=== PATIENT | female | born 1990 | race Caucasian/White ===

== ENCOUNTER 2016-08-21 22:28 | Inpatient (IN) | payer OTHER ==
[~2016-08-21] VITALS: Ht 154.9 cm; Wt 76.0 kg
[2016-08-21 22:33] VITALS: BP 128/80
[2016-08-21 22:41] VITALS: BP 128/80
[2016-08-21] MEDS ORDERED: LR 1,000 ML IV SCH (23:32)
[2016-08-21] MEDS ORDERED: PENICILLIN G POTASSIUM IV 5 MU in D5W MINI-BAG PLUS 100 ML IV STA (23:32)
--- NOTE | 2016-08-21 23:43 | HPEPDOC ---
Obstetrical History & Physical General Date of Admission Aug 21, 2016 at 23:28 History of Present Illness 26 y/o at 40+0 by 1st tri US with LOF since 2129. No VB. Irreg ctx's. Not in a lot of pain. Pos FM. Uncomplicated . Transfered here at 32 weeks. Chief Complaint: Contractions, term, LOF, term Information Provided By: Patient Care Care: Good Care Dating Final EDC: Aug 21, 2016 Final EDC by: 1st trimester (US) Past Medical History Past Obstetrical History : Past Obstetrical History: Primgravida Past Medical History Medical History denies Surgical History: Denies/None Family History Significant Family History: No pertinent family hx Social History Marital Status: Family situation: Spouse/partner home Psychosocial History: No pertinent psych hx * Smoker: non-smoker Alcohol: denies Drugs: denies Abuse Violence Screening Have you been hit/kicked/slapp: No Have you been sexually assault: No Imunizations Tdap status: current Influenza Status: declined Allergies Coded Allergies: No Known Allergies (Unverified , 08/21/16) Physical Examination Physical Examination GENERAL: Alert and oriented times three. BREAST: . ABDOMEN: Gravid and non-tender to touch. FETUS: Is vertex (VTX) by sterile vaginal examination (SVE), signif amt clear fluid with cx check. Nitr pos. EXTREMITIES: No edema. Laboratory Data Urine Culture: No Growth Pertinent Laboratoy Data Blood Type: A+ RBC Antibody Screen: Negative HIV: Negative Hepatitis B: Negative Hepatitis C: Unknown Rapid Plasma Reagin: Nonreactive Rubella: Immune Varicella: Immune Chlamydia/Gonorrhea: Negative Group B Streptococcus: Positive Quad Screen Test: Declined Cystic Fibrosis: Declined Glucose Tolerance Test: 97 Anatomy Ultrasound Placenta Location: Anterior Normal Anatomy: Yes Placenta Previa: No (marginal previa at 17 wk scan, resolved at 30 wk scan) Steroid Therapy Steroid Therapy: No Vaginal Examination Dilation: 2cm Effacement: 75% Station: -2 Cervical Consistency: Soft Cervical Position: Middle Presentation: Cephalic presentation Assessment Variability: Moderate Accelerations: Positive Decelerations: None Tocometer Contractions: Yes Frequency: irregular Assessment/Plan Assessment PROM (clr) at 2129 today at 40+0. Plan Admit and orient. Entry Level Drafter and consent. Diet: clears Group B Streptococcus (GBS) pos, PCN 5/2.5 Labs and intravenous (IV) per unit protocol. Counseled on Pitocin and need for this if after second dose of PCN does not have significant change in her dilation/labor progression. Lactated Ringers (LR): Bolus if epidural desired, currently undecided, for now at 125/hr. Anticipate normal spontaneous delivery () C-S as appropriate. Check at ~0400 after second PCN dose Sessions MD SESSIONS,AFSHIN Weston MD Aug 21, 2016 23:43
[2016-08-22] VITALS (56 sets, daily range): BP systolic 99–159; BP diastolic 56–98
[2016-08-22 00:08] LABS: MEAN CORPUSCULAR HEMOGLOBIN 28.9 pg (27.0-33.0); RED CELL DISTRIBUTION WIDTH 14.8 % (11.5-14.5); WHITE BLOOD COUNT 8.7 K/mm3 (4.0-10.0)
[2016-08-22] MEDS ORDERED: NALBUPHINE HCL 10 MG/ML AMP (J2300) IV ONE (00:30)
[2016-08-22] MEDS ORDERED: NALBUPHINE HCL 10 MG/ML AMP (J2300) IM ONE (00:30)
[2016-08-22] MEDS ORDERED: PROMETHAZINE INJ 25 MG/ML VIAL (J2550) IV ONE (00:30)
[2016-08-22] MEDS: PENICILLIN G POTASSIUM IV 2.5 MU in D5W 100 ML IV SCH ×3 (03:50→14:14)
[2016-08-22] MEDS ORDERED: FENTANYL 2MCG/ML ROPIVACAINE 0.2% NACL 250 ML CADD As Ordered ONE (04:21)
[2016-08-22] MEDS ORDERED: ONDANSETRON 4MG/2ML VIAL (J2405) IV PRN (05:15)
[2016-08-22] MEDS ORDERED: diphenhydrAMINE INJ 50MG/ML VIAL (J1200) IV PRN (05:15)
[2016-08-22] MEDS ORDERED: ePHEDrine SULFATE 25 MG/5 ML(5MG/ML) SYRINGE IV PRN (05:15)
[2016-08-22] MEDS ORDERED: LACTATED RINGER'S 1000 ML IV PRN (05:15)
[2016-08-22] MEDS ORDERED: FENTANYL/ROPIVACAINE/NACL CADD 250 ML EPIDURAL SCH (05:15)
[2016-08-22] MEDS ORDERED: REFRIGERATOR IV KEYS XX PRN (05:15)
[2016-08-22] MEDS ORDERED: EPIDURAL/PCA KEYS XX PRN (05:15)
[2016-08-22] MEDS ORDERED: NALOXONE INJ 0.4 MG/1 ML VIAL (J2310) IV PRN (05:15)
[2016-08-22] MEDS ORDERED: EPIDURAL COMMENT XX SCH (05:15)
--- NOTE | 2016-08-22 06:19 | IPNPDOC ---
Text Note Date of Service The patient was seen on 08/22/16. NOTE late note Now s/p epidural and 2 doses PCN Per RN [id number] Cx 6-7/100/-2 Plan on cx check at [id number] after I finish a on another pt Sessions VS,Katie, I+O VSKatie, I+O Laboratory Tests 08/21/16 23:54 Red Blood Count 3.81 L, Mean Corpuscular Volume 85.0, Mean Corpuscular Hemoglobin 28.9, Mean Corpuscular Hemoglobin Concent 34.0, Red Cell Distribution Width 14.8 H SESSIONS,AFSHIN Weston MD Aug 22, 2016 06:19
[2016-08-22] MEDS ORDERED: OXYTOCIN 30 UNITS IN 0.9% NaCl 500ML IV BAG (J2590) As Ordered ONE (10:21)
[2016-08-22] MEDS ORDERED: OXYTOCIN DRIP 30 UNITS in APPROPRIATE DILUENT 1 EA IV SCH (15:48)
[2016-08-22 15:51] LABS: CORD GAS ABE V -6.5; CORD GAS HCO3 V 17.6 MEQ/L; CORD GAS O2 SAT V 83.5 %; CORD GAS PCO2 V 32.3 mmHg; CORD GAS PH V 7.353 UNITS; CORD GAS PO2 V 38.9 mmHg; CORD GAS SBC V 18.9 MEQ/L; CORD GAS TCO2 V 18.5 MEQ/L
[2016-08-22 15:53] LABS: CORD GAS HCO3 A 19.3 MEQ/L; CORD GAS O2 SAT A 73.1 %; CORD GAS PCO2 A 37.9 mmHg; CORD GAS PH A 7.324 UNITS; CORD GAS PO2 A 33.3 mmHg; CORD GAS TCO2 A 20.4 MEQ/L
[2016-08-22] MEDS ORDERED: DOCUSATE SODIUM 100 MG CAP PO PRN (16:00)
[2016-08-22] MEDS ORDERED: RHOGAM 300 MCG (1500 IU) INJ (J2790) IM SCH (16:00)
[2016-08-22] MEDS ORDERED: MEASLES,MUMPS,RUBELLA VACCINE INJ (MMR-II) (90707) SC SCH (16:00)
[2016-08-22] MEDS ORDERED: ACETAMINOPHEN 500 MG TAB PO PRN (16:00)
[2016-08-22] MEDS ORDERED: METHYLERGONOVINE MALEATE 0.2 MG TAB PO PRN (16:00)
[2016-08-22] MEDS ORDERED: OXYTOCIN INJ 10 UNITS/ML VIAL (J2590) IV ONE (16:00)
[2016-08-22] MEDS ORDERED: ANUSOL HC CREAM 30GM TOP PRN (16:00)
[2016-08-22] MEDS ORDERED: DIBUCAINE 1% OINTMENT 30GM TOP PRN (16:00)
[2016-08-22] MEDS ORDERED: MOM 30ML SUSPENSION UDC PO PRN (16:00)
[2016-08-22] MEDS ORDERED: IBUPROFEN 800 MG TAB PO PRN (16:00)
[2016-08-23 05:58] VITALS: BP 117/70
[2016-08-23 07:26] LABS: MEAN CORPUSCULAR HEMOGLOBIN 28.5 pg (27.0-33.0); MEAN CORPUSCULAR HGB CONC 33.2 g/dl (32.0-36.5); WHITE BLOOD COUNT 12.6 K/mm3 (4.0-10.0)
[2016-08-23] MEDS: PRENATAL VITAMIN TAB PO SCH (09:30)
[2016-08-23 18:18] VITALS: BP 126/76
[2016-08-24 05:31] VITALS: BP 132/78
[2016-08-24] MEDS: PRENATAL VITAMIN TAB PO SCH (10:10)
[2016-08-24] MEDS ORDERED: ACET50TA PO (12:30)
[2016-08-24] MEDS ORDERED: PRENTAB9 PO (12:30)
[2016-08-24] MEDS ORDERED: IBUP-1114 PO (12:31)
[2016-08-24] MEDS ORDERED: COLA100C PO (12:33)
--- NOTE | 2016-08-24 12:34 | DN ---
DATE: 08/22/2016 DELIVERY NOTE: This is a 26-year-old 1, now para 1, was admitted with spontaneous rupture of membrane, group B Streptococcus (GBS) positive and adequately treated. She was in persistent occiput posterior (POP) position to occiput transverse (OT) position for a prolonged period of time, required a bit of augmentation with Pitocin. Baby rotated from the occiput posterior (OP) to the occiput anterior (OA) and patient's perineum was quite swollen due to position of the baby. At full dilatation, she had a spontaneous vaginal delivery of a live female infant with cord around neck times two, tight, 3174 grams, scores of 7 and 9 at 1 at 5 minutes, respectively, 7 pounds 0 ounces. Placenta delivered spontaneously thereafter. Three-vessel cord, membranes and tissues intact. Arterial and venous pH were performed. Examination of the vulva and vagina, quite swollen vulvar area. There was one blood vessel that was bleeding and oversewn with a figure-of-8, 2-0 Vicryl and J339. The rest of the examination was unremarkable. The patient has a significant number of hemorrhoids. Uterus contracted well down on Pitocin. The patient and baby tolerating procedure well.
--- NOTE | 2016-08-24 13:09 | IPN ---
DATE: 08/23/2016 A 26-year-old 1 admitted with spontaneous rupture of murmurs and 40 weeks spontaneous vaginal delivery of female, 7 pounds 0 ounces, 3174 grams. She had significant vulvar swelling. Epidural was in place. No episiotomy. On examination today, her blood pressure 117/70, respirations are 16, pulse 82, temperature 97.6. Her hemoglobin is 11.0, hematocrit 32.4, platelets are 240. hemoglobin day 1 is pending. The rest of the examination is unremarkable. She is neurologic complete. Normocephalic, atraumatic. Neck: Full range of motion. Pupils equal and reactive to light. Distal pulses are symmetric. No evidence of deep vein thrombosis (DVT) , pulmonary embolism (PE), or superficial phlebitis. No wheezes or rhonchi. Bases are clear. Uterus 2 below. Lochia is moderate. Four-quadrant bowel sounds are noted. No rashes, lesions, or pruritus. No arthritis or myalgia. No complaints of cough, wheezes, shortness of breath, or dyspnea on exertion. On examination of her vulvar area the swelling has considerably gone down. She has no chest pain. No bleeding. Neurologic complete. No complaints of incontinence, urgency, or frequency. No nausea, vomiting, diarrhea, or constipation. In summary we have a term gestation delivered from the POP to the OA position. Had significant vulvar edema, which is reduced now. The patient is planning on discharge tomorrow and will use Nor-Q as a method of control.
== END 2016-08-24 13:15 | disposition home or self-care (01) | DRG 775 ==
LOC: M LDO 22:28 → M LDI 23:28 → M OBS 08-22 18:45
PROVIDERS: ADMIT Obstetrics & Gynecology; ATTEND Obstetrics & Gynecology
PROC: 10E0XZZ Delivery of Products of Conception, External Approach (ICD-10-PCS; principal; 2016-08-22)
PROC: 0HQ9XZZ Repair Perineum Skin, External Approach (ICD-10-PCS; 2016-08-22)
DX: O99.824 Streptococcus B carrier state complicating childbirth (principal); Z3A.40 40 weeks gestation of pregnancy; O69.81X0 Labor and delivery complicated by cord around neck, without compression, not applicable or unspecified; O22.43 Hemorrhoids in pregnancy, third trimester; O70.0 First degree perineal laceration during delivery; Z37.0 Single live birth

== ENCOUNTER 2019-03-13 22:56 | Outpatient (CLI) | payer OTHER ==
[~2019-03-13] VITALS: Ht 154.9 cm; Wt 77.9 kg
[~2019-03-13 22:56] MED LIST: COLA100C5 PO; IBUP-1114 PO; MAPA500T2 PO; PRENTAB9 PO
[2019-03-13 23:19] VITALS: BP 135/92
[2019-03-13 23:45] VITALS: BP 125/86
--- NOTE | 2019-03-14 00:21 | HPE ---
DATE OF ADMISSION: 03/13/2019 A 28-year-old 2, para 1, last menstrual period (LMP) 05/30/2018, estimated date of confinement (EDC) 03/13/2019 at 40 weeks of gestation, thought she was in labor. No loss of fluid or vaginal bleeding. PAST HISTORY: August 2016: At 40 weeks spontaneous vaginal delivery, epidural, female, 7 pounds. She has uncomplicated antepartum course, had anemia but was given iron and vitamin C, otherwise unremarkable. Labs are A+, HIV negative, hepatitis negative, RPR negative, rubella immune. Varicella immune. Pap normal. Urine negative. Gonorrhea and chlamydia are negative. 1-hour glucose 103. GBS is negative. Blood pressure 125/80, respirations 18, pulse 70, temperature 98.2. Urine 1.010, pH 7, trace of blood. On examination, no acute distress. Symphysis fundus height is 40, vertex presenting. Category one strip. She does have contractions, but they are intermittent and moderate intensity, and they are far apart. She has to actually look at her watch to find out when they are. On pelvic examination, no vaginal loss or bleeding, 1 cm, very posterior, thick, -3 station, bulging membranes. Plan of management is to hydrate. We gave her discharge instructions regarding kick chart, premature rupture of membranes, labor. She is booked for induction of labor on 03/20/2019, to maintain that appointment. Otherwise, if there is ruptured membranes, bleeding, contractions that are moderate intensity, 5-7 minutes apart, lasting 40 to 60 seconds, she is to return or call the triage line. The patient expressed understanding. She was discharged undelivered.
[2019-03-15] MEDS ORDERED: COLA100C5 PO (07:41)
[2019-03-15] MEDS ORDERED: IBUP80TA PO (07:41)
[2019-03-15] MEDS ORDERED: DIBU10OI TOP (07:41)
[2019-03-15] MEDS ORDERED: PROC1CRE5 TOP (07:41)
== END 2019-03-14 | disposition home or self-care (01) ==
LOC: M LDO 22:56
PROVIDERS: ATTEND Obstetrics & Gynecology
DX: O47.1 False labor at or after 37 completed weeks of gestation (principal); Z3A.40 40 weeks gestation of pregnancy
CPT/HCPCS: 59025; G0378; G0463

== ENCOUNTER 2019-03-14 00:43 | Inpatient (IN) | payer OTHER ==
[2019-03-14] VITALS (18 sets, daily range): BP systolic 113–185; BP diastolic 60–104
[~2019-03-14] VITALS: Ht 154.9 cm; Wt 77.3 kg
[2019-03-14 01:39] LABS: HEMATOCRIT 35.6 % (36.0-47.0); HEMOGLOBIN 11.5 g/dl (12.0-15.5); MEAN CORPUSCULAR HEMOGLOBIN 27.5 pg (27.0-33.0); MEAN CORPUSCULAR HGB CONC 32.3 g/dl (32.0-36.5); MEAN CORPUSCULAR VOLUME 85.2 fl (80.0-96.0); PLATELET COUNT, AUTOMATED 236 10^3/uL (150-450); RED BLOOD COUNT 4.18 10^6/uL (4.00-5.40); WHITE BLOOD COUNT 14.4 10^3/uL (4.0-10.0)
[2019-03-14] MEDS ORDERED: FENTANYL 2MCG/ML ROPIVACAINE 0.2% IN 0.9% NACL 100ML IVBAG As Ordered ONE (01:57)
[2019-03-14] MEDS ORDERED: diphenhydrAMINE INJ 50MG/ML VIAL (J1200) IV PRN (03:00)
[2019-03-14] MEDS ORDERED: EPIDURAL/PCA KEYS XX PRN (03:00)
[2019-03-14] MEDS ORDERED: FENTANYL/ROPIVACAINE/NACL BAG 100 ML EPIDURAL SCH (03:00)
[2019-03-14] MEDS ORDERED: ONDANSETRON 4MG/2ML VIAL (J2405) IV PRN (03:00)
[2019-03-14] MEDS ORDERED: EPIDURAL COMMENT XX SCH (03:00)
[2019-03-14] MEDS ORDERED: NALOXONE INJ 0.4 MG/1 ML VIAL (J2310) IV PRN (03:00)
[2019-03-14] MEDS ORDERED: LACTATED RINGER'S 1000 ML IV PRN (03:00)
[2019-03-14] MEDS ORDERED: ePHEDrine SULFATE 25 MG/5 ML(5MG/ML) SYRINGE IV PRN (03:00)
[2019-03-14] MEDS ORDERED: REFRIGERATOR IV KEYS XX PRN (03:00)
[2019-03-14] MEDS ORDERED: OXYTOCIN 30 UNITS IN 0.9% NaCl 500ML IV BAG (J2590) As Ordered ONE (03:32)
[2019-03-14 04:06] LABS: CORD GAS ABE A -9.6; CORD GAS ABE V -8.4; CORD GAS HCO3 A 22.5 MEQ/L; CORD GAS HCO3 V 19.7 MEQ/L; CORD GAS O2 SAT A 41.9 %; CORD GAS O2 SAT V 44.6 %; CORD GAS PCO2 A 75.4 mmHg; CORD GAS PCO2 V 49.7 mmHg; CORD GAS PH A 7.092 UNITS; CORD GAS PH V 7.217 UNITS; CORD GAS PO2 A 23.9 mmHg; CORD GAS PO2 V 22.4 mmHg; CORD GAS SBC A 15.7 MEQ/L; CORD GAS SBC V 16.5 MEQ/L; CORD GAS TCO2 A 24.8 MEQ/L; CORD GAS TCO2 V 21.3 MEQ/L
[2019-03-14] MEDS ORDERED: LR 1,000 ML IV SCH (04:58)
[2019-03-14] MEDS ORDERED: ANUSOL HC CREAM 30GM TOP PRN (05:00)
[2019-03-14] MEDS ORDERED: MEASLES,MUMPS,RUBELLA VACCINE INJ (MMR-II) (90707) SC SCH (05:00)
[2019-03-14] MEDS ORDERED: DOCUSATE SODIUM 100 MG CAP PO PRN (05:00)
[2019-03-14] MEDS ORDERED: ACETAMINOPHEN TAB 650MG DOSE (2X325MG) PO PRN (05:00)
[2019-03-14] MEDS ORDERED: RHOGAM 300 MCG (1500 IU) INJ (J2790) IM SCH (05:00)
[2019-03-14] MEDS ORDERED: OXYTOCIN INJ 10 UNITS/ML VIAL (J2590) IV ONE (05:00)
[2019-03-14] MEDS ORDERED: MOM 30ML SUSPENSION UDC PO PRN (05:00)
[2019-03-14] MEDS ORDERED: OXYTOCIN DRIP 30 UNITS in APPROPRIATE DILUENT 1 EA IV ONE (05:00)
[2019-03-14] MEDS ORDERED: METHYLERGONOVINE MALEATE 0.2 MG TAB PO PRN (05:00)
[2019-03-14] MEDS ORDERED: DIBUCAINE 1% OINTMENT 30GM TOP PRN (05:00)
[2019-03-14] MEDS ORDERED: IBUPROFEN 600 MG TAB PO PRN (05:00)
--- NOTE | 2019-03-14 08:04 | HPE ---
DATE OF ADMISSION: 03/14/2019 HISTORY: This is a 28-year-old, 2, para 1, last menstrual period (LMP) is 05/30/2018, expected date of confinement (EDC) by early ultrasound is 03/13/2019 at 40 weeks and 1 day of gestation who came back after being discharged at being only 2 cm in active labor with spontaneous rupture of membranes and found to be 4 cm dilated and with moderate intensity of contractions. PAST HISTORY: In 2017, at 40 weeks, spontaneous vaginal delivery with epidural, female, 7 pounds. She has an uncomplicated course. She had anemia and was given iron and vitamin C, otherwise was well. LAB VALUES: A positive. HIV negative. Hepatitis negative. RPR negative. Rubella immune. Varicella immune. Pap normal. Urine negative. Gonorrhea and chlamydia are negative. 1-hour glucose was 103. GBS is negative. Blood pressure on admission was 128/77, respirations are 18, pulse 85, temperature 97.1. Hemoglobin 11.5, hematocrit 35.6 and platelets are 236. She is in moderate distress at the present time. Symphysis fundus height is 40, vertex. Category one strip. Clear liquid noted. The plan of management was to hydrate her and get an epidural. We anticipate progress to delivery. We discussed the risks and benefits of vaginal delivery which includes the possibility of use of forceps or vacuum devices if needed for maternal or indications, forceps or vacuum device that could assist when vaginal delivery with normal pushing efforts cannot achieve delivery on their own or when delivery is imminent or if needed in an emergency situation for the well-being. Medications required to augment her labor to help achieve vaginal delivery. Episiotomy may be required to deliver the baby vaginally. May also require repair of any lacerations or tears of the vagina or vulva that are caused by delivery. In some cases, emergencies arise which require delivery so quickly that we need to do emergency section. The provider will discuss the reasons for this as this is needed in order to be safer for mom and baby than continuing labor and is performed for clinically indicated reasons. The risks of vaginal delivery include, but are not limited to bleeding, infection, injury to vagina or pelvic structures, injury to baby, damage to the uterus, reaction to anesthesia, uterine rupture, risk of hysterectomy for life-threatening bleeding, or even . Medications used to augment labor may increase the risk for infection, uterine tachysystole, uterine rupture, rate heart abnormalities, need for emergency delivery, possible hysterectomy for hemorrhage. In addition the risks for use of forceps or vacuum include scratches or hematomas of the head and intracranial bleed. The patient expressed and verbalized understanding. We will hydrate her, get an epidural in place and anticipate progress.
[2019-03-14] MEDS: PRENATAL VITAMINS CHEWABLE TABLET PO SCH (09:42)
[2019-03-14] MEDS ORDERED: OXYTOCIN INJ 10 UNITS/ML VIAL (J2590) As Ordered ONE (10:08)
[2019-03-14] MEDS ORDERED: LIDOCAINE 1% MDV 20ML VIAL As Ordered ONE (10:08)
--- NOTE | 2019-03-14 10:09 | DN ---
DATE: 03/14/2019 DELIVERY NOTE: This is a 2, para 1 was discharged earlier this evening because she was having mild contractions and only 2 cm and was very early prodromal labor. She returned several hours later having had spontaneous rupture of membranes and was found to be 4 cm, clear liquor and actively romario. She did have an epidural in place and I was called regarding decelerations of the heart below baseline and with poor recovery. On digital examination, she was found to be 9-1/2 cm, -2 station in the POP position. Despite adequate pushing, the contractions themselves seemed to be short and nonproductive therefore she was on 2 mA of Pitocin to enhance the contractions. Eventually, at full dilatation with persistent bradycardia, we used forceps in the POP position. After examining the patient being fully dilated, bladder was drained and with one pull to the perineum brought the baby posteriorly and under the symphysis pubis. The forceps were then removed and with the next push she had a spontaneous vaginal delivery of a male infant. We noted the cord was around the neck, very tight, delivered a live 7 pounds 15 ounces, 3590 grams, scores of 3, 6, and 8. The cord was also wrapped around the shoulder. The arterial pH was 7.09, base excess -9.6, venous pH 7.21, base excess -8.4. The placenta delivered spontaneously thereafter. Three-vessels, membranes and tissues intact. The uterus contracted well down on Pitocin. On evaluation of the vagina, we noticed that she had a vaginal tear from delivery and we oversewn that with a 2-0 Vicryl on a J 339. Hemostasis was secured. Digital examination of the rectum was intact with sphincter. Anterior, posterior and lateral miller were also intact. The cervix, the anterior lip, was quite swollen because of the persistent POP; however, it was resolving on its own. There was some bruising of the perineum but no evidence of extravasation of blood. In summary, we have a term gestation delivered a live male by low forceps delivery. The baby was taken the intensive care unit (NICU) as protocol because of forceps delivery for observation for 4 hours.
[2019-03-14] MEDS: ACETAMINOPHEN 500 MG TAB PO PRN ×2 (13:26→21:05)
[2019-03-14] MEDS ORDERED: SLF 3 ML SYR IV PRN (15:45)
[2019-03-14] MEDS: IBUPROFEN 800 MG TAB PO PRN (15:47)
[2019-03-14] MEDS: SLF 3 ML SYR IV SCH (22:00)
[2019-03-15] MEDS: IBUPROFEN 800 MG TAB PO PRN (00:01)
[2019-03-15] MEDS: SLF 3 ML SYR IV SCH (05:07)
[2019-03-15 06:13] VITALS: BP 109/64
[2019-03-15 07:00] LABS: HEMATOCRIT 29.4 % (36.0-47.0); MEAN CORPUSCULAR HEMOGLOBIN 26.7 pg (27.0-33.0); MEAN CORPUSCULAR VOLUME 86.2 fl (80.0-96.0); PLATELET COUNT, AUTOMATED 169 10^3/uL (150-450); RED BLOOD COUNT 3.41 10^6/uL (4.00-5.40); WHITE BLOOD COUNT 9.8 10^3/uL (4.0-10.0)
[2019-03-15 07:04] LABS: HEMOGLOBIN 9.1 g/dl (12.0-15.5)
[2019-03-15] MEDS ORDERED: IBUP80TA PO (07:41)
[2019-03-15] MEDS ORDERED: COLA100C5 PO (07:41)
[2019-03-15] MEDS ORDERED: PROC1CRE5 TOP (07:41)
[2019-03-15] MEDS ORDERED: DIBU10OI TOP (07:41)
--- NOTE | 2019-03-15 09:42 | DSES ---
DATE OF ADMISSION: 03/14/2019 DATE OF DISCHARGE: 03/15/2019 28-year-old, 2, para 1, who is in moderate distress. She came in, in active labor. She had spontaneous rupture of membranes of clear liquor. When she got into active labor, she had an epidural in place, delivered a live male infant male, score of 3, 6, 8 at one, five and ten minutes. Baby was transitioned in the intensive care unit (NICU) because of the use of forceps. Baby had a significant tight cord around the neck, very tight on the body as well. Male weighed 7 pounds 15 ounces (3590 grams). Arterial pH 7.09, base excess -9.6, venous pH 7.21, base excess 8.4. On discharge, we discussed phlebitis, cystitis, mastitis, endometritis and cellulitis, diet, exercise, pain management, perineal, breast and wound care. She was not dispensed contraceptive as her is being deployed, but she has been dispensed with her medications. She has a 6 week checkup. On discharge, her blood pressure is 109/64, respirations 18, pulse 71, temperature is 97.7. Her discharge hemoglobin 9.1, hematocrit 29.4 and platelets were 169. The rest examination unremarkable. Normocephalic, atraumatic. Neck full range of motion. Pupils equal and reactive light. Distal pulses symmetric. No evident deep venous thrombosis (DVT), pulmonary embolism (PE) or superficial phlebiktis. Chest is clear bilaterally bases. No wheezes or rhonchi. Abdomen is soft. Uterus 2 below, lochia is moderate. Four quadrant bowel sounds are noted. Perineum is clean and dry. No rashes, lesions or pruritus. No complaint of cough, wheeze, shortness breath or dyspnea on exertion. No complaint joint pain. No incontinency or frequency. No nausea, vomiting, diarrhea, or constipation. In summary, we have a term gestation delivered a live male , discharged, appointment 6 weeks post [facility], discharged with medications. edited: 03/16/2019 0730 tkf ROSENDA
--- NOTE | 2019-03-15 10:25 | DSES ---
DATE OF ADMISSION: 03/14/2019 DATE OF DISCHARGE: 03/15/2019 28-year-old 2 now para 2 who was admitted with spontaneous rupture of membranes at 40 and 1 weeks' of gestation. She had prolonged bradycardia, operative vaginal delivery of a live male infant, 7 pounds 15 ounces, 3590 grams, scores of 3, 6, and 8 at 1, 5 and 10 minutes. Cord was very tight around the neck and across the shoulder. Arterial pH 7.09, base excess -9.6, venous pH 7.21, base excess -8.4. She had a small vaginal tear, which was oversewn usual fashion hemostatically with 2-0 Vicryl J 339. On discharge, her blood pressure is 109/64, respirations 18, pulse 71, temperature 97.7. Her discharge hemoglobin was 9.1, hematocrit 29.4 and platelets are 169. The rest examination unremarkable. Normocephalic, atraumatic. Neck: Full range of motion. Pupils equal and reactive to light. Distal pulses symmetric. No evidence of DVT, PE or superficial phlebitis. Chest is clear bilaterally to the bases. No wheezes or rhonchi. No CVA tenderness. Abdomen is soft. Uterus 2 below. Lochia is moderate. Four quadrant bowel sounds are noted. Perineum is healing. No rashes, lesions or pruritus. No arthralgia or myalgia. No complaint joint pain. No complaint cough, wheeze, shortness of breath or dyspnea on exertion. No nausea, vomiting, diarrhea or constipation. No urgency or frequency. SUMMARY: We have a term gestation delivered a live male infant. Medications were dispensed at discharge. She has not made up her mind regarding control. She has a 6-week check. All questions were answered. 20-minute discussion. edited: 03/16/2019 0731 sunday HERZOG
[2019-03-15] MEDS: PRENATAL VITAMINS CHEWABLE TABLET PO SCH (10:26)
== END 2019-03-15 13:30 | disposition home or self-care (01) | DRG 807 ==
LOC: M LDO 00:43 → M LDI 01:17 → M OBS 10:08
PROVIDERS: ADMIT Obstetrics & Gynecology; ATTEND Obstetrics & Gynecology
PROC: 10D07Z3 Extraction of Products of Conception, Low Forceps, Via Natural or Artificial Opening (ICD-10-PCS; principal; 2019-03-14)
DX: O48.0 Post-term pregnancy (principal); Z37.0 Single live birth; Z3A.40 40 weeks gestation of pregnancy; O76 Abnormality in fetal heart rate and rhythm complicating labor and delivery

== ENCOUNTER → 2019-05-25 | Outpatient (CLI) | payer OTHER ==
[~2019-05-25] MED LIST changes: +DIBU10OI TOP; +IBUP80TA PO; +PROC1CRE5 TOP
--- NOTE | 2019-06-01 01:21 | ECWPNPC ---
PATIENT NAME: RAMYA CRAVEN : 1990 GENDER: FEMALE VISIT DATE: 05/25/2019 DISCHARGE DATE: 05/25/19 1606 VISIT LOCKED DATE TIME: PHYSICIAN: SHANNAN WARREN MD RESOURCE: SHANNAN WARREN MD REASON FOR APPOINTMENT 1. POST PARTEM PAIN AT EPIDURAL SITE/NUMBNESS HISTORY OF PRESENT ILLNESS PAIN SCREENING: PATIENT HAS A COMPLAINT OF ACUTE OR CHRONIC PAIN :YES 29 YEAR OLD FEMALE PATIENT WITH A HISTORY OF CHRONIC BACK AND HIP PAIN. THE PATIENT DESCRIBES THE PAIN ACHING, TENDER, INTERMITTENT, AND CONTINUOUS WITH A PAIN SCORE OF 4-6/10 DEPENDING ON PHYSICAL ACTIVITY. THE PATIENT SATES HER PAIN BEGAN AFTER SHE HAD A VAGINAL DELIVERY AND AN EPIDURAL. THE PATIENT STATES HER PAIN BEGINS IN HER BACK AND RADIATES DOWN TOWARD HER HIPS WITH NUMBNESS OVER MAINLY HER LEFT HIP. THE PATIENT SAYS HER PAIN AND NUMBNESS FIRST BEGAN IN HER RIGHT THIGH AREA, BUT SWITCHED TO HER LEFT AFTERWARD. THE PATIENT SAYS SHE IS CURRENTLY BREAST FEEDING HER BABY. THE PATIENT MENTIONS SHE HAS A PAST HISTORY OF ANKLE PAIN THAT BEGAN WHEN SHE WAS PLAYING SOCCER, BUT THE ANKLE PAIN RESIDED AFTER SHE QUIT PLAYING THE SPORT. PATIENT DENIES UNEXPLAINABLE WEIGHT LOSS, FEVER, CHILLS, NEW CHANGES ON HER URINARY OR BOWEL CONTROL. FALL RISK SCREENING: SCREENING :NO FALLS REPORTED IN THE LAST YEAR CURRENT MEDICATIONS TAKING 19 - TABLET 1 TABLET ORALLY ONCE A DAY MEDICATION LIST REVIEWED AND RECONCILED WITH THE PATIENT PAST MEDICAL HISTORY MEDICAL HISTORY VERIFIED. ALLERGIES N.K.D.A. SURGICAL HISTORY TONSILLECTOMY 1996 FAMILY HISTORY FATHER: ALIVE 60 YRS MOTHER: ALIVE 50 YRS 2 BROTHER(S) - HEALTHY. 1 SON(S) , 1 DAUGHTER(S) - HEALTHY. DAD HAS DIVERTICULITISMOM WITH HISTORY OF ALCOHOL ABUSE. SOCIAL HISTORY GENERAL: TOBACCO USE ARE YOU A:NONSMOKER PAIN CLINIC PFS, CLERGY, PUBLIC HEALTH REFERRALS HAS THE PATIENT BEEN EDUCATED REGARDING HIS/HER PLAN OF CARE?YES HAS THE PATIENT BEEN EDUCATED REGARDING PAIN, THE RISK FOR PAIN, THE IMPORTANCE OF EFFECTIVE PAIN MANAGEMENT, AND THE PAIN ASSESSMENT PROCESS?YES LATEX QUESTIONNAIRE LATEX ALLERGY : HAVE YOU EVER DEVELOPED ANY TYPE OF REACTION AFTER HANDLING LATEX PRODUCTS SUCH RUBBER GLOVES, CONDOMS, DIAPHRAGMS, BALLOONS, SOCKS, OR UNDERWEAR?NO LATEX ALLERGY : HAVE YOU EVER DEVELOPED ANY TYPE OF REACTION DURING OR AFTER DENTAL APPOINTMENT, VAGINAL/RECTAL EXAMINATION, SURGICAL PROCEDURE, OR ANY OTHER EXPOSURE?NO LATEX RISK : HAVE YOU EVER HAD ANY DIFFICULTY BREATHING OR HIVES AFTER EATING OR HANDLING ANY FRUITS, OR VEGETABLES; SUCH KIWI, BANANAS, STONE FRUITS, OR CHESTNUTSNO LATEX RISK : DO YOU HAVE A PREVIOUS PERSONAL HISTORY OF MORE THAN NINE SURGERIES, SPINA BIFIDA, OR REPEATED CATHERIZATIONS? NO LATEX RISK : ARE YOU FREQUENTLY EXPOSED TO LATEX PRODUCTS IN YOUR OCCUPATION?NO DATE ASKED : 05/25/2019 OTHERS AT HOME: CHILDREN, SPOUSE DEPLOYED. CAFFEINE CAFFEINE USE?YES 2/MONTH ADVANCE DIRECTIVE ADVANCE DIRECTIVE DISCUSSED WITH PATIENT:YES PT HAS NO ADVANCED DIRECTIVES, DECLINES INFORMATION OR ASSISTANCE AT THIS TIME LANGUAGE LANGUAGES SPOKEN:CYPRIOT DOMESTIC VIOLENCE DO YOU FEEL SAFE IN YOUR ENVIRONMENT?YES MARITAL STATUS: . RECREATIONAL DRUG USE DRUG USE?NO OCCUPATION: STAY AT HOME MOM. LEARNING BARRIERS / SPECIAL NEEDS BARRIERS TO LEARNING?NO HEARING IMPAIRED?NO VISION IMPAIRED?NO COGNITIVELY IMPAIRED?NO READINESS TO LEARN?YES LEARNING PREFERENCES?NO LEARNING CAPABILITIES PRESENT?YES EMOTIONAL BARRIERS?NO SPECIAL DEVICES?NO ARCHITECTURAL INSPECTOR NEEDED?NO HOSPITALIZATION/MAJOR DIAGNOSTIC PROCEDURE SURGERY AND CHILDBIRTH REVIEW OF SYSTEMS REVIEWED BY: PROVIDER: SHANNAN WARREN MD . CONSTITUTIONAL: ANY CHANGE IN YOUR MEDICAL CONDITION? NO . CHILLS NO . FEVER NO . INFECTION: DO YOU HAVE NEW INFECTIONS? NO . DO YOU HAVE HISTORY OF MRSA? NO . MUSCULOSKELETAL: ANY NEW PATTERNS OF PAIN OR NUMBNESS? YES PT REPORTS THAT SINCE GIVING TO HER SECOND CHILD 03/2019, SHE HAS HAD PAIN IN HER LOW BACK (EPIDURAL SITE). THIS PAIN ORIGINALLY RADIATED TO RIGHT HIP/BUTT/THIGH WHICH HAS NOW RESOLVED, BUT PAIN IS NOW RADIATING TO LEFT LATERAL HIP/BUTT/THIGH. SHE STATES THIS IS HAPPENING ABOUT 3 TIMES A DAY, EACH TIME LASTING FROM 30 SECONDS TO SEVERAL MINUTES. SHE SAYS SHE DOESN'T LOSE STRENGTH IN HER LEGS, BUT IS ALSO NOT CONFIDENT THAT SHE WON'T. SHE HAS TRIED STRETCHING, MOVING/RESTING. . SYTEMIC LUPUS NO . GASTROENTEROLOGY: ANY NEW CHANGE IN BOWEL CONTROL? YES PT REPORTS TWO EPISODES OF URGENCY/DIARRHEA. . BARRETTS ESOPHAGUS NO . CIRRHOSIS NO . HEPATITIS NO . LIVER FAILURE NO . ACID REFLUX NO . UNEXPLAINED WEIGHT LOSS NO . GENITOURINARY: ANY NEW CHANGE IN BLADDER CONTROL? NO . IS THERE A CHANCE YOU COULD BE ? NO . HEMATOLOGY/LYMPH: DO YOU TAKE ANY BLOOD THINNERS? (FOR EXAMPLE- COUMADIN, PLAVIX, AGGRENOX, PLATEL, PRADAXA, OR XARELTO) NO . WHEN WAS YOUR LAST DOSE? DATE: TIME: . LOW PLATELET COUNT NO . SICKLE CELL DISEASE NO . VON WILLIEBRANDS NO . FACTOR V LEIDEN NO . THALLASEMIA NO . ANEMIA NO . EASY BRUISING NO . NEUROLOGY: HAVE YOU FALLEN IN THE PAST 12 MONTHS? NO . ANY NEW EXTREMITY NUMBNESS OR WEAKNESS? NO . HEAD INJURY NO . DEMENTIA NO . CEREBRAL PALSY NO . MULTIPLE SCLEROSIS NO . DIZZINESS WHILE GETTING UP FROM SITTING POSITION OCCASIONALLY . HEADACHE NO . STROKES NO . VERTIGO NO . CARDIOLOGY: DO YOU HAVE A PACEMAKER OR DEFIBRILLATOR? NO . ANGINA NO . HEART ATTACK NO . HEART SURGERY NO . CONGESTIVE HEART FAILURE/FLUID OVERLOAD NO . CHEST PAIN NO . HIGH BLOOD PRESSURE NO . IRREGULAR HEART BEAT NO . RESPIRATORY: HAVE YOU BEEN SICK IN THE PAST WEEK? NO . FEVER NO . FLU LIKE SYMPTOMS? NO . CPAP NO . BYPAP NO . ASTHMA NO . EMPHYSEMA NO . CHRONIC LUNG DISEASES NO . SHORTNESS OF BREATH ON EXERTION NO . COUGH NO . SNORING NO . INTEGUMENTARY: DO YOU HAVE ANY RASHES OR OPEN SORES? NO . ALLERGIC/IMMUNO: ARE YOU ALLERGIC TO IV DYE? NO . ANY NEW ALLERGIES? NO . PSYCHIATRIC: DO YOU HAVE THOUGHTS OF HURTING YOURSELF OR SOMEONE ELSE? NO . ARE YOU ABUSED, NEGLECTED, OR IN AN UNSAFE ENVIRONMENT? NO . ENDOCRINOLOGY: ARE YOU DIABETIC? NO . THYROID DISORDER NO . OTHER: DO YOU NEED ANY PRESCRIPTIONS? NO . IF YES, PLEASE LIST: ____ . ANY NEW PROBLEMS WITH YOUR MEDICATIONS? NO . WHEN DID YOU LAST EAT? ____ . WHEN DID YOU LAST DRINK? ____ . WHAT DID YOU LAST DRINK? ____ . NAME OF PERSON DRIVING YOU HOME? ____ . DO YOU HAVE ANY OTHER QUESTIONS OR CONCERNS NO . VITAL SIGNS WT 143.4 LBS, HT 51 IN, BMI 38.76 INDEX, BP 115/65 MM HG, HR 67 /MIN, RR 18 /MIN, TEMP 97.8 F, OXYGEN SAT % 97%, SAFE IN ENV? (Y/N) YES, NA INITIALS AW 1421, REVIEWED BY: MARIANNA. EXAMINATION GENERAL EXAMINATION: PATIENT IS ALERT O X 3 AND COOPERATIVE. LUNGS CLEAR, TO AUSCULTATION. HEART: NO MURMURS OR GALLOPS; FACIAL CRANIAL NERVES ARE GROSSLY NORMAL. GOOD SYMMETRY OF FACIAL MUSCLE MOVEMENT. NORMAL VISUAL BADILLO. NORMAL GAIT. TENDERNESS OVER THE PARASPINAL MUSCLE GROUP OF THE LOW BACK. PRESENCE OF BANDS OF TISSUE AND TRIGGER POINTS WITH RESTRICTION OF MOVEMENT OF THE LOW BACK. PAIN INCREASES OVER THE LUMBAR FACET JOINTS WITH EXTENSION AND LATERAL ROTATION OF THE BACK. TENDERNESS OVER THE MEDIAL ASPECT PROXIMAL TO ANKLES AND DISTAL LEGS. STRAIGHT LEG RAISES OF EITHER LEG ARE NEGATIVE FOR RADICULOPATHY. LEG STRENGTH ARE ADEQUATE FOR BOTH LEGS. ASSESSMENTS LUMBAGO WITH SCIATICA, RIGHT SIDE - M54.41 (PRIMARY) OTHER CHRONIC PAIN - G89.29 LUMBAGO WITH SCIATICA, LEFT SIDE - M54.42 NUMBNESS OF LEGS - R20.0 TREATMENT LUMBAGO WITH SCIATICA, RIGHT SIDE [facility] MRI LUMBAR W/O CONTRAST (CPT 12934)[id number] CLINICAL NOTES: WE DISCUSSED SEVERAL ISSUES WITH MS. CRAVEN'S PAIN MANAGEMENT CASE. I AM REQUESTING FOR THE PATIENT TO START PHYSICAL THERAPY, 3 SESSIONS PER WEEK FOR A DURATION OF 6 WEEKS, TO HELP WITH HER BACK AND HIP PAIN. I WOULD ALSO LIKE TO ORDER FOR THE PATIENT TO HAVE A LUMBAR MRI DONE TO GAIN A BETTER UNDERSTANDING OF WHERE THE PATIENT'S PAIN IS ORIGINATING FROM. I WILL REFER THE PATIENT TO A NEUROLOGIST FOR A CONSULT TO DISCUSS POTENTIAL OPTIONS. THE PATIENT WILL FOLLOW UP WITH THE NURSE PRACTITIONER IN SEVERAL WEEKS. INSTRUCTIONS WERE GIVEN, QUESTIONS WERE ANSWERED, PATIENT REPORTS UNDERSTANDING AND AGREES WITH THE PLAN. I, CARL CLARK, DOCUMENTED THE ABOVE INFORMATION ACTING A SCRIBE FOR DR. WARREN. I HAVE REVIEWED THE ABOVE DOCUMENT, WRITTEN BY CARL LIRA AND I VERIFY THAT IT IS ACCURATE. [facility]: THANK YOU FOR YOUR KIND REFERRAL OF RAMYA CRAVEN. IF YOU WANT TO DISCUSS HER CASE WITH ME PLEASE CALL ME AT THE PAIN CENTER AT [phone]. SINCERELY, SHANNAN WARREN MD PAIN MEDICINE . OTHER CHRONIC PAIN [facility] MRI LUMBAR W/O CONTRAST (CPT [id number])[id number] LUMBAGO WITH SCIATICA, LEFT SIDE [facility] MRI LUMBAR W/O CONTRAST (CPT [id number])[id number] NUMBNESS OF LEGS [facility] MRI LUMBAR W/O CONTRAST (CPT [id number] PROCEDURE CODES FA211 ESTABILISHED PATIENT [facility] FACILITY CHARGE [id number] CURRENT MEDS W/DOSAGES DOCUMENTED G8730 PAIN ASSESS POS TOOL F/U PLAN DOC DISPOSITION & COMMUNICATION ELECTRONICALLY SIGNED BY SHANNAN WARREN MD, MD ON 05/31/2019 AT 04:06 PM EST DISCLAIMER : THIS IS A VISIT SUMMARY EXTRACTED FROM THE [employer] CHART. IT IS NOT A COPY OF THE [employer] PROGRESS NOTE. MTDD
== END ==
LOC: M PAIN 14:00
PROVIDERS: ATTEND Anesthesiology
DX: M54.41 Lumbago with sciatica, right side (principal); G89.29 Other chronic pain; M54.42 Lumbago with sciatica, left side; R20.0 Anesthesia of skin

== ENCOUNTER → 2019-06-08 | Outpatient (CLI) | payer OTHER ==
--- NOTE | 2019-06-08 10:42 | REP ---
MRI lumbar spine: 06/08/2019. Indication: Low back pain. Lumbar radiculopathy. Comparison: None. Technique: Multiplanar short and long TR sequences of the lumbar spine were obtained without IV Gadolinium. Findings: Vertebral body alignment is anatomic. No worrisome marrow or cord signal abnormalities are present. No significant paraspinal soft tissue abnormalities are present. Disc space height is maintained throughout. No focal disc herniations or significant spinal canal / neural foraminal narrowing are present throughout the lumbar spine. Impression: Unremarkable MRI of the lumbar spine. Electronically Signed by eTd Holley DO 06/08/2019 10:33 A
== END ==
LOC: M RAD 09:16
PROVIDERS: ATTEND Anesthesiology
DX: M54.41 Lumbago with sciatica, right side (principal)